=== PATIENT | female | born 1965 | race Caucasian/White ===

== ENCOUNTER 2021-05-26 11:23 | Emergency (ER) | payer OTHER ==
[2021-05-26] MEDS ORDERED: Sodium Chloride 0.9% 10 ML Syringe FLUSH PRN (11:31)
[2021-05-26] MEDS ORDERED: Sodium Chloride 0.9% 2.5 ML Syringe FLUSH PRN (11:31)
--- NOTE | 2021-05-26 11:34 | PCM.EKG ---
#1 Interpretation EKG Date: 05/26/21 Time: 11:25 Rhythm: NSR Rate (Beats/Min): 80 [place]: Normal P-Wave: Present QRS: Normal ST-T: Normal QT: Normal FL/PQ Interval: 141 EKG Interpretation Comments: no acute ischemic changes
[2021-05-26] MEDS ORDERED: Aspirin 81 MG Tab.Chew PO ONE (11:45)
[2021-05-26] MEDS ORDERED: Albuterol/Ipratropium 3.0-0.5 MG/3 ML Neb Soln NEB ONE (12:18)
[2021-05-26] MEDS ORDERED: methylPREDNISolone Sodium Succinate 125 MG/2 ML SDV IVPUSH ONE (12:18)
--- NOTE | 2021-05-26 12:18 | EDM.PDOC ---
ED HPI GENERAL MEDICAL PROBLEM - General Chief Complaint: Chest Pain Stated Complaint: CHEST PAIN Time Seen by Provider: 05/26/21 11:24 Source of Information: Reports: Patient History Limitations: Reports: No Limitations - History of Present Illness INITIAL COMMENTS - FREE TEXT/NARRATIVE: HISTORY AND PHYSICAL: History of present illness: Patient is a 56 year old female, with a history of hypertension, asthma, Raynaud, who presents emergency room today with concern of chest pain that is ongoing for the past 4 days. Patient states that the chest pain was initially intermittent and was coming and going. Patient said it has now been constant since yesterday. Patient states that it is in the center of her chest and feels like a "bruise ". Patient states that she is also noting some fluttering in her chest and states that at times her heart is racing. Patient states that she does have a history of sleep apnea and states that she has not had a CPAP machine for quite some time. Patient states since the onset of her symptoms, she has had a hard time sleeping at night because she wakes up gasping and her heart racing. Patient states that she has not taken anything for her symptoms. Patient does note that she had stopped smoking cigarettes 2 months ago but has switched over to vaporizing. Patient states that a few days ago, her family member brought over a different kind of vaporizing solution and states that she feels like this somehow triggered her symptoms. Patient states that she has also been feeling some discomfort of her throat and nose after starting this new vaporizer. Patient states that she has been using eamr-sko-[id number] nasal saline which has been helping the symptoms. Patient denies fever, chills, cough. Denies headache, neck stiff ness, change in vision, syncope, or near syncope. Denies nausea, vomiting, abdominal pain, diarrhea, constipation, or dysuria. Has not noted any blood in urine or stool. Patient has been eating and drinking appropriately. Review of systems: As per history of present illness and below otherwise all systems reviewed and negative. Past medical history: As per history of present illness and as reviewed below otherwise noncontributory. Surgical history: As per history of present illness and as reviewed below otherwise noncontributory. Social history: See social history for further information Family history: As per history of present illness and as reviewed below otherwise noncontributory. Physical exam: General: Patient is alert, oriented, and in no acute distress. Patient sitting comfortably on exam table. Vitals stable and reviewed by me. HEENT: No lip edema, tongue edema, or oropharyngeal edema. No stridor. Atraumatic, normocephalic, pupils equal and reactive bilaterally, negative for conjunctival pallor or scleral icterus, mucous membranes moist, throat clear, neck supple, nontender, trachea midline. No drooling or trismus noted. No meningeal signs. No hot potato voice noted. Lungs: Clear to auscultation, breath sounds equal bilaterally, chest nontender. Heart: S1S2, regular rate and rhythm without overt murmur Abdomen: Soft, nondistended, nontender. Negative for masses or hepatosplenomegaly. Negative for costovertebral tenderness. Pelvis: Stable nontender. Genitourinary: Deferred. Rectal: Deferred. Skin: Intact, warm, dry. No lesions or rashes noted. Extremities: Atraumatic, negative for cords or calf pain. Neurovascular unremarkable. Neuro: Awake, alert, oriented. Cranial nerves II through XII unremarkable. Cerebellum unremarkable. Motor and sensory unremarkable throughout. Exam nonfocal. Medical Decision Making: Patient is a 56-year-old female with a history of hypertension, asthma, and Raynauds presented to the emergency room today with concern of 4-day history of chest pain with associated throat/nasal discomfort. Upon arrival to the ED, patient is vitally stable and well-appearing on exam. Will obtain cardiac evaluation, provide a dose of aspirin, and reassess patient. See Dr. Cortes's dictation for specific EKG interpretation. Otherwise, normal sinus rhythm without STEMI. CBC does show mild leukocytosis with white blood cell count of 11.39, otherwise mild derangements of CBC unremarkable. D-dimer is within normal limits. CMP mild derangements are unremarkable. Troponin negative. TSH, free T3 and T4 within normal limits. Covid and influenza negative. Repeat 3-hour troponin remains negative. Chest x-ray unremarkable. Upon reevaluation of patient, she states that she does have improvement of her chest pain but does state that she does have a "stuck "feeling in the middle of her throat which does make it feel like she is having a hard time breathing. Patient states that she had a hard time explaining this during the initial HPI but states that she feels like this discomfort of her throat is what is causing her chest pain and shortness of breath. Patient states that she does feel this is related to vaporizing. I did discuss thoroughly with patient to stop vaporizing immediately. Because of this, will obtain soft tissue neck CT and angiography of chest due to sensation of airway impingement. Although patient is breathing comfortably, no drooling or trismus on exam. Lungs are clear. No lip edema, tongue edema, or oropharyngeal edema. No stridor. Soft tissue neck CT shows shoddy bilateral level 1 and level 2 lymph nodes are nonspecific but likely reactive in nature. No radiographic evidence of peripherally enhancing fluid collections. Mild to moderate scattered degenerative changes of the cervical spine. Ang CT of the chest shows no acute cardiopulmonary abnormality. No evidence of PE. On reevaluation of patient, she remains vitally stable and comfortable throughout stay in ED. I did offer admission for observation the patient, however, she declines at this time. All risks versus benefits discussed with patient and expresses understanding. I did further discuss with patient how potentially the chemicals of the vaporizer are causing some airway inflammation/sensation of fullness and discomfort. I discussed immediately stopping vaporizing as this is a new substance to her. I also discussed the other possibilities need to be further evaluated with cardiology and her primary care provider. I did discuss with patient the importance for follow-up with a primary care provider/director of regional sales. Strict return precautions thoroughly discussed with patient. Voices understanding and is agreeable to plan of care. Denies any further questions or concerns at this time. Diagnostics: EKG, CBC, CMP, chest x-ray 1 view, troponin, D-dimer, Covid/influenza, soft tissue neck CT with contrast, angiography of the chest Therapeutics: Saline lock, aspirin, DuoNeb, Solu-Medrol, Benadryl Prescription: None Impression: Atypical chest pain Dysphagia Plan: 1. You can alternate ibuprofen and Tylenol as directed for pain and discomfort. Stop vaporizing as discussed. 2. Follow-up with your primary care provider and director of regional sales as discussed. Return to the ED as needed and as discussed. Definitive disposition and diagnosis as appropriate pending reevaluation and review of above. chest area Pain Score (Numeric/FACES): 6 - Related Data Allergies Allergy/AdvReac Type Severity Reaction Status Date / Time No Known Allergies Allergy Verified 05/26/21 11:36 Home Meds: Home Meds Albuterol [Ventolin HFA] 1 inh INH ASDIRECTED PRN 07/01/16 [History] Lurasidone [Latuda] 40 mg PO DAILY 05/26/21 [History] lisinopriL [Lisinopril] 10 mg PO DAILY 05/26/21 [History] Past Medical History HEENT History: Reports: None Cardiovascular History: Reports: Hypertension Respiratory History: Reports: Asthma Gastrointestinal History: Reports: None Genitourinary History: Reports: None RESEARCH COORDINATOR History: Reports: None Musculoskeletal History: Reports: Other (See Below) Other Musculoskeletal History: Raynaud's Neurological History: Reports: None Psychiatric History: Reports: Anxiety, Bipolar, Depression, PTSD Endocrine/Metabolic History: Reports: None Insulin Pump Model and Director Life Insurance: None Hematologic History: Reports: None Immunologic History: Reports: None Oncologic (Cancer) History: Reports: None Dermatologic History: Reports: None - Infectious Disease History Infectious Disease History: Reports: None - Past Surgical History Head Surgeries/Procedures: Reports: None HEENT Surgical History: Reports: None Cardiovascular Surgical History: Reports: None Social & Family History - Family History Family Medical History: No Pertinent Family History - Caffeine Use Caffeine Use: Reports: None - Recreational Drug Use Recreational Drug Use: No ED ROS GENERAL - Review of Systems Review Of Systems: Comprehensive ROS is negative, except as noted in HPI. ED EXAM, GENERAL - Physical Exam Exam: See Below (see dictation) Course - Vital Signs Last Recorded V/S: Last Vital Signs Temp 97.2 F 05/26/21 16:23 Pulse 92 05/26/21 16:23 Resp 18 05/26/21 16:23 BP 140/85 05/26/21 16:23 Pulse Ox 97 05/26/21 16:23 - Orders/Labs/Meds Orders: Active Orders 24 hr Category Date Time Status Saline Lock Insert [OM.PC] Stat Oth 05/26/21 11:31 Ordered Labs: Laboratory Tests 05/26/21 05/26/21 05/26/21 Range/Units 11:20 11:20 11:20 WBC 11.39 H (4.0-11.0) K/uL RBC 4.65 (4.30-5.90) M/uL Hgb 14.3 (12.0-16.0) g/dL Hct 43.8 (36.0-46.0) % MCV 94.2 (80.0-98.0) fL MCH 30.8 (27.0-32.0) pg MCHC 32.6 (31.0-37.0) g/dL RDW Std Deviation 47.1 (28.0-62.0) fl RDW Coeff of Tessie 14 (11.0-15.0) % Plt Count 312 (150-400) K/uL MPV 10.00 (7.40-12.00) fL Neut % (Auto) 77.0 (48.0-80.0) % Lymph % (Auto) 18.4 (16.0-40.0) % [place] % (Auto) 4.0 (0.0-15.0) % Eos % (Auto) 0.3 (0.0-7.0) % Baso % (Auto) 0.3 (0.0-1.5) % Neut # (Auto) 8.8 H (1.4-5.7) K/uL Lymph # (Auto) 2.1 (0.6-2.4) K/uL [place] # (Auto) 0.5 (0.0-0.8) K/uL Eos # (Auto) 0.0 (0.0-0.7) K/uL Baso # (Auto) 0.0 (0.0-0.1) K/uL Nucleated RBC % 0.0 /100WBC Nucleated RBCs # 0 K/uL D-Dimer, Quantitative 0.48 (0.0-0.50) mg/L FEU Sodium 142 (136-145) mmol/L Potassium 3.5 (3.5-5.1) mmol/L Chloride 105 (98-107) mmol/L Carbon Dioxide 29.0 (21.0-32.0) mmol/L BUN 10 (7.0-18.0) mg/dL Creatinine 0.8 (0.6-1.0) mg/dL Est Cr Clr Drug Dosing 77.27 mL/min Estimated GFR (MDRD) > 60.0 ml/min Glucose 111 H (74-106) mg/dL Calcium 9.4 (8.5-10.1) mg/dL Total Bilirubin 0.4 (0.2-1.0) mg/dL AST 18 (15-37) IU/L ALT 23 (14-63) IU/L Alkaline Phosphatase 64 (46-116) U/L Troponin I < 0.050 (0.000-0.056) ng/mL Total Protein 8.4 H (6.4-8.2) g/dL Albumin 3.7 (3.4-5.0) g/dL Globulin 4.7 H (2.6-4.0) g/dL Albumin/Globulin Ratio 0.8 L (0.9-1.6) Lipase 70 L (73-393) U/L Free T4 (0.76-1.46) ng/dL Free T3 (2.18-3.98) pg/mL TSH, Ultra Sensitive (0.36-3.74) uIU/mL Influenza Type A RNA (NEGATIVE) Influenza Type B RNA (NEGATIVE) SARS-CoV-2 RNA (JOSE) (NEGATIVE) 05/26/21 05/26/21 05/26/21 Range/Units 11:20 11:58 13:15 WBC (4.0-11.0) K/uL RBC (4.30-5.90) M/uL Hgb (12.0-16.0) g/dL Hct (36.0-46.0) % MCV (80.0-98.0) fL MCH (27.0-32.0) pg MCHC (31.0-37.0) g/dL RDW Std Deviation (28.0-62.0) fl RDW Coeff of Tessie (11.0-15.0) % Plt Count (150-400) K/uL MPV (7.40-12.00) fL Neut % (Auto) (48.0-80.0) % Lymph % (Auto) (16.0-40.0) % [place] % (Auto) (0.0-15.0) % Eos % (Auto) (0.0-7.0) % Baso % (Auto) (0.0-1.5) % Neut # (Auto) (1.4-5.7) K/uL Lymph # (Auto) (0.6-2.4) K/uL [place] # (Auto) (0.0-0.8) K/uL Eos # (Auto) (0.0-0.7) K/uL Baso # (Auto) (0.0-0.1) K/uL Nucleated RBC % /100WBC Nucleated RBCs # K/uL D-Dimer, Quantitative (0.0-0.50) mg/L FEU Sodium (136-145) mmol/L Potassium (3.5-5.1) mmol/L Chloride (98-107) mmol/L Carbon Dioxide (21.0-32.0) mmol/L BUN (7.0-18.0) mg/dL Creatinine (0.6-1.0) mg/dL Est Cr Clr Drug Dosing mL/min Estimated GFR (MDRD) ml/min Glucose (74-106) mg/dL Calcium (8.5-10.1) mg/dL Total Bilirubin (0.2-1.0) mg/dL AST (15-37) IU/L ALT (14-63) IU/L Alkaline Phosphatase (46-116) U/L Troponin I < 0.050 (0.000-0.056) ng/mL Total Protein (6.4-8.2) g/dL Albumin (3.4-5.0) g/dL Globulin (2.6-4.0) g/dL Albumin/Globulin Ratio (0.9-1.6) Lipase (73-393) U/L Free T4 1.13 (0.76-1.46) ng/dL Free T3 2.64 (2.18-3.98) pg/mL TSH, Ultra Sensitive 0.53 (0.36-3.74) uIU/mL Influenza Type A RNA NEGATIVE (NEGATIVE) Influenza Type B RNA NEGATIVE (NEGATIVE) SARS-CoV-2 RNA (JOSE) NEGATIVE (NEGATIVE) Meds: Medications Discontinued Medications Generic Name Dose Route Start Last Admin Trade Name Freq PRN Reason Stop Dose Admin Albuterol/Ipratropium 3 ml 05/26/21 12:18 05/26/21 12:23 Albuterol/Ipratropium 3.0-0.5 Mg/3 Ml Neb Soln NEB 05/26/21 12:19 3 ml ONETIME ONE Administration Albuterol/Ipratropium Confirm 05/26/21 13:13 05/26/21 13:19 Albuterol/Ipratropium 3.0-0.5 Mg/3 Ml Neb Soln Administered 05/26/21 13:14 Not Given Dose 3 ml .ROUTE .STK-MED ONE Aspirin 324 mg 05/26/21 11:45 05/26/21 11:59 Aspirin 81 Mg Tab.Chew PO 05/26/21 11:46 324 mg ONETIME ONE Administration Diphenhydramine HCl 50 mg 05/26/21 13:00 05/26/21 13:23 Diphenhydramine 50 Mg/Ml Sdv IVPUSH 05/26/21 13:01 50 mg ONETIME ONE Administration Iopamidol 100 ml 05/26/21 15:17 05/26/21 15:18 Iopamidol 755 Mg/Ml 500 Ml Multipack Bottle IVPUSH 05/26/21 15:18 100 ml ONETIME ONE Administration Methylprednisolone Sodium Succinate 125 mg 05/26/21 12:18 05/26/21 12:23 Methylprednisolone Sodium Succinate 125 Mg/2 Ml Sdv IVPUSH 05/26/21 12:19 125 mg ONETIME ONE Administration Sodium Chloride 10 ml 05/26/21 11:31 Sodium Chloride 0.9% 10 Ml Syringe FLUSH ASDIRECTED PRN Keep Vein Open Sodium Chloride 2.5 ml 05/26/21 11:31 Sodium Chloride 0.9% 2.5 Ml Syringe FLUSH ASDIRECTED PRN Keep Vein Open Departure - Departure Time of Disposition: 16:12 Disposition: Home, Self-Care 01 Clinical Impression: Atypical chest pain, Dysphagia - Discharge Information Instructions: Chest Wall Pain, [id number] Referrals: PCP,None [Primary Care Provider] - Forms: ED Department Discharge Additional Instructions: The following information is given to patients seen in the emergency department who are being discharged to home. This information is to outline your options for follow-up care. We provide all patients seen in our emergency department with a follow-up referral. The need for follow-up, as well as the timing and circumstances, are variable depending upon the specifics of your emergency department visit. If you don't have a primary care physician on staff, we will provide you with a referral. We always advise you to contact your personal physician following an emergency department visit to inform them of the circumstance of the visit and for follow-up with them and/or the need for any referrals to a consulting specialist. The emergency department will also refer you to a specialist when appropriate. This referral assures that you have the opportunity for follow-up care with a specialist. All of these measure are taken in an effort to provide you with optimal care, which includes your follow-up. Under all circumstances we always encourage you to contact your private physician who remains a resource for coordinating your care. When calling for follow-up care, please make the office aware that this follow-up is from your recent emergency room visit. If for any reason you are refused follow-up, please contact the [facility] Emergency Department at and asked to speak to the emergency department charge nurse. [facility] / Cardiology [id number], [place] [address] [facility] [address] [place] [id number] 1. You can alternate ibuprofen and Tylenol as directed for pain and discomfort. Stop vaporizing as discussed. 2. Follow-up with your primary care provider and director of regional sales as discussed. Return to the ED as needed and as discussed. Sepsis Event Note (ED) - Evaluation Sepsis Screening Result: No Definite Risk - Focused Exam Vital Signs: Vital Signs Temp Pulse Resp BP Pulse Ox 05/26/21 16:23 97.2 F 92 18 140/85 97 05/26/21 14:00 90 18 142/84 H 94 L 05/26/21 11:25 97.7 F 90 18 158/90 H 97 - My Orders Last 24 Hours: My Active Orders 05/26/21 11:31 Saline Lock Insert [OM.PC] Stat - Assessment/Plan Last 24 Hours: My Active Orders 05/26/21 11:31 Saline Lock Insert [OM.PC] Stat
[2021-05-26 12:19] LABS: BLOOD UREA NITROGEN,BUN 10 mg/dL (7.0-18.0); CHLORIDE,CL 105 mmol/L (98-107); GLUCOSE RANDOM 111 mg/dL (74-106); LIPASE 70 U/L (73-393); POTASSIUM,K 3.5 mmol/L (3.5-5.1); SODIUM,NA 142 mmol/L (136-145)
--- NOTE | 2021-05-26 12:24 | CR ---
INDICATION: Chest pain and shortness of breath. TECHNIQUE: Chest 1 view. COMPARISON: None. FINDINGS: Cardiovascular and mediastinum: Heart size and vasculature are normal in caliber and appearance. Lungs and pleural spaces: Lungs are clear. No sign of infiltrate or mass. No sign of pleural effusion. No pneumothorax. Bones and soft tissues: No significant findings. IMPRESSION: No acute or significant findings. Dictated by Lambert Becker MD @ 05/26/2021 12:22:06 PM (Electronically Signed)
[2021-05-26 12:49] LABS: CORONAVIRUS COVID-19 NAA NEGATIVE (NEGATIVE); INFLUENZA A NAA NEGATIVE (NEGATIVE); INFLUENZA B NAA NEGATIVE (NEGATIVE)
[2021-05-26] MEDS ORDERED: diphenhydrAMINE 50 MG/ML SDV IVPUSH ONE (13:00)
[2021-05-26] MEDS ORDERED: Albuterol/Ipratropium 3.0-0.5 MG/3 ML Neb Soln ONE (13:13)
[2021-05-26] MEDS ORDERED: Iopamidol 755 MG/ML 500 ML Multipack Bottle IVPUSH ONE (15:17)
--- NOTE | 2021-05-26 15:22 | CR ---
INDICATION: Sensation of lump in base of throat. TECHNIQUE: AP and lateral images of the neck with soft tissue technique. COMPARISON: None FINDINGS: Epiglottis and aryepiglottic folds normal in thickness. No hypopharyngeal distention. IMPRESSION: Negative soft tissue study of the neck. Dictated by Aleksandar Sierra MD @ 05/26/2021 3:21:57 PM (Electronically Signed)
--- NOTE | 2021-05-26 15:35 | CT ---
Indication: Sensation of mass in throat. Throat pain. Technique: CT soft tissue neck with IV contrast was acquired from the skullbase to the thoracic inlet. No comparisons. Findings: Visualized posterior fossa structures are within normal limits. The thyroid, submandibular and parotid glands are within normal limits. The cervical airway is widely patent. Epiglottis appears refined. Vallecula and piriform sinuses are within normal limits. Visualized pulmonary apices are grossly unremarkable. [place] bilateral level 1 and level 2 lymph nodes are nonspecific and likely reactive in nature. The palatine tonsils are within normal limits. No suspicious fluid collections. No convincing evidence suspicious enhancing masses seen within the soft tissues in neck. [id number] scattered degenerative changes of the cervical spine. The visualized maxillary, ethmoid and sphenoid sinuses appear clear. Impression: 1. [place] bilateral level 1 and level 2 lymph nodes are nonspecific but likely reactive in nature. 2. No radiographic evidence of peripherally enhancing fluid collections. 3. [id number] scattered degenerative changes of the cervical spine. Please note that all CT scans at this facility use dose modulation, iterative reconstruction, and/or weight-based dosing when appropriate to reduce radiation dose to as low as reasonably achievable. Dictated by Alexander Romeo MD @ 05/26/2021 3:33:01 PM (Electronically Signed)
--- NOTE | 2021-05-26 16:04 | CT ---
Indication: Chest pain with palpitations, hot flashes question through mass Technique: Volumetric multidetector CT images of the chest were obtained after the administration of IV contrast. 100 cc Isovue 370 low osmolar intravenous contrast Comparison: None available. Findings: The thoracic inlet and thyroid gland are unremarkable. The thoracic aorta is nonaneurysmal. There is no central filling defect to suggest pulmonary embolism. There is no mediastinal, hilar or axillary adenopathy. The trachea and bronchi are well aerated without significant bronchiectasis. There is no focal consolidation, effusion or pneumothorax. There is no evidence of pulmonary mass or suspicious pulmonary nodule. The partially visualized upper abdominal viscera are within normal limits. There is diffuse flowing anterior osteophytosis with mild multilevel degenerative disc disease. There is no significant spondylolisthesis or displaced fracture. Impression: No acute cardiopulmonary abnormality. No evidence of pulmonary embolus. Please note that all CT scans at this facility use dose modulation, iterative reconstruction, and/or weight-based dosing when appropriate to reduce radiation dose to as low as reasonably achievable. Dictated by Raf Yepez MD @ 05/26/2021 4:03:08 PM (Electronically Signed)
[2021-05-26 16:23] VITALS: BP 140/85; PULSE 92
== END 2021-05-26 16:23 | disposition home or self-care (01) ==
LOC: MW.ED 11:23
DX: R07.89 Other chest pain (principal); R13.10 Dysphagia, unspecified; I10 Essential (primary) hypertension; J45.909 Unspecified asthma, uncomplicated; D72.829 Elevated white blood cell count, unspecified; Z79.899 Other long term (current) drug therapy; Z20.822 Contact with and (suspected) exposure to COVID-19
CPT/HCPCS: 0240U; 36415; 70360; 70491; 71045; 71275; 80053; 83690; 84439; 84443; 84481; 84484; 85025; 85379; 93005; 96374; 96375; 99285; A9270; J1200; J2930; Q9967; J7620-GY

== ENCOUNTER 2021-06-20 13:52 | Emergency (ER) | payer MEDICAID, OTHER ==
--- NOTE | 2021-06-20 14:27 | EDM.PDOC ---
ED HPI GENERAL MEDICAL PROBLEM - General Chief Complaint: ENT Problem Stated Complaint: PT FEELS "LIKE HER THROAT IS CLOSING " Time Seen by Provider: 06/20/21 14:02 Source of Information: Reports: Patient History Limitations: Reports: No Limitations - History of Present Illness INITIAL COMMENTS - FREE TEXT/NARRATIVE: HISTORY AND PHYSICAL: History of present illness: Patient is a 56-year-old female who presents to the emergency room with concerns of foreign body in her esophagus. She states since Thanksgiving she has had the sensation of something in her throat. She was seen by her primary care provider at [place] [facility] who felt this could be due to sinus drainage and placed her on a course of amoxicillin. She was referred to ENT in [facility] although states it is "too far away" and wanted to be evaluated today as she has had increased anxiety. Patient grabs at her throat and states "I can feel it in there". Patient denies any fever, chills, headache, change in vision, syncope or near syncope. Denies any chest pain, back pain, shortness of breath or cough. No difficulty with speech or swallowing. Denies any GI or symptoms. Patient has been eating and drinking appropriately. No recent travel or sick contacts. Review of systems: As per history of present illness and below otherwise all systems reviewed and negative. Past medical history: As per history of present illness and as reviewed below otherwise noncontributory. Surgical history: As per history of present illness and as reviewed below otherwise noncontributory. Social history: See social history for further information Family history: As per history of present illness and as reviewed below otherwise noncontributory. Physical exam: General: Well developed and well nourished 56-year-old female. Alert and orientated x 3. Nontoxic in appearance and in no acute distress. Vital signs are stable and have been reviewed by me. Nursing notes were reviewed. HEENT: Atraumatic, normocephalic, pupils equal and reactive bilaterally, negative for conjunctival pallor or scleral icterus, mucous membranes moist, TMs normal bilaterally, throat clear, neck supple, nontender, trachea midline. No drooling or trismus noted. No meningeal signs. No hot potato voice noted. Lungs: Clear to auscultation bilaterally. No wheezes, rales, or rhonchi. Chest nontender. Normal work of breathing, no accessory muscles used. Heart: S1S2, regular rate and rhythm without overt murmur, gallops, or rubs. No JVD. No peripheral edema Abdomen: Soft, nondistended, nontender. Normoactive bowel sounds. Negative for masses or costovertebral tenderness. Skin: Intact, warm, dry. No lesions or rashes noted. Hematologic: No petechiae or purpra. Mucosa appropriate color and normal nail bed color and refill. Extremities: Atraumatic, moves all extremities per self without difficulty or deficits, negative for cords or calf pain. Neurovascular unremarkable. Neuro: Awake, alert, oriented. Cranial nerves II through XII unremarkable. Cerebellum unremarkable. Motor and sensory unremarkable throughout. Exam nonfocal. Psychiatric: Mood and affect are appropriate. Normal thought process. Answering questions appropriately. Please note that the patient was seen and evaluated during the 2019 SARS-CoV-2 novel coronavirus pandemic period. Community viral transmission is ongoing at time of this encounter and the emergency department is operating under pandemic response procedures. Medical Decision Making: Patient's physical exam is unremarkable. She is nontoxic-appearing, breathing easy has clear speech and eating and drinking without any difficulty. We did discuss that she likely needs an EGD at some point if this sensation continues and or follow-up with the ENT specialist as already has been recommended. We did discuss doing a CT of the soft tissue neck at this time as she is unhappy with out further diagnostics. Overall, similar exam to comparison without evidence of acute abnormality. Incidental note is made of moderate prominence of a ventral osteophyte arising from the C3-C4 level as well as additional osteophytosis at the C5-C6 and C6-C7 levels with minimal effacement of the oropharynx and hypopharynx. Occasionally, these can be a cause of dysphagia and globus sensation. Correlate with history of clinical symptoms. Otherwise, stable shotty lymph nodes without evidence of acute abnormality. I have talked with the patient about today's findings, in addition to providing specific details for plan of care. Reassessment at the time of disposition demonstrates that the patient is in no acute distress. The patient is stable for discharge, counseling was provided and we discussed in great detail signs and symptoms that would prompt them to return to the Emergency Department. Me dication, follow up and supportive care measures were reviewed and discussed. Voices understanding and is agreeable to plan of care. Denies any further questions or concerns at this time. Diagnostics: CBC, CMP, CT soft tissue neck Therapeutics: None Prescription: None Impression: Sensation of foreign body in throat Plan: 1. You were evaluated today on an emergent basis. Your CT shows no concern for anything in the throat. I would have you follow up with ENT or general surgery of an endoscopy to further evaluate. 2. You can alternate Tylenol and ibuprofen as needed for pain and fever m anagement. 3. We encourage you to follow up with your primary care provider and/or recommended specialist in the next few days for re-evaluation and further care/management. 4. If your symptoms should worsen, new symptoms develop or any of the signs and symptoms we discussed should arise please return to the emergency room or call 911 (if needed). Definitive disposition and diagnosis as appropriate pending reevaluation and review of above. Throat Pain Score (Numeric/FACES): 5 - Related Data Allergies Allergy/AdvReac Type Severity Reaction Status Date / Time No Known Allergies Allergy Verified 06/20/21 14:06 Home Meds: Home Meds Albuterol [Ventolin HFA] 1 inh INH ASDIRECTED PRN 07/01/16 [History] lisinopriL [Lisinopril] 10 mg PO DAILY 05/26/21 [History] Loratadine 1 dose PO DAILY 06/20/21 [History] atorvaSTATin [Lipitor] 1 dose PO DAILY 06/20/21 [History] Past Medical History HEENT History: Reports: None Cardiovascular History: Reports: Hypertension Respiratory History: Reports: Asthma Gastrointestinal History: Reports: None Genitourinary History: Reports: None HYPERTRICHOLOGIST History: Reports: None Musculoskeletal History: Reports: Other (See Below) Other Musculoskeletal History: Raynaud's Neurological History: Reports: None Psychiatric History: Reports: Anxiety, Bipolar, Depression, PTSD Endocrine/Metabolic History: Reports: None Insulin Pump Model and Ruby On Rails Developer: None Hematologic History: Reports: None Immunologic History: Reports: None Oncologic (Cancer) History: Reports: None Dermatologic History: Reports: None - Infectious Disease History Infectious Disease History: Reports: None - Past Surgical History Head Surgeries/Procedures: Reports: None HEENT Surgical History: Reports: None Cardiovascular Surgical History: Reports: None Social & Family History - Family History Family Medical History: No Pertinent Family History - Tobacco Use Tobacco Use Status *Q: Former Tobacco User Used Tobacco, but Quit: Yes Month/Year Tobacco Last Used: 3 months - Caffeine Use Caffeine Use: Reports: None - Recreational Drug Use Recreational Drug Use: No ED ROS ENT - Review of Systems Review Of Systems: Comprehensive ROS is negative, except as noted in HPI. ED EXAM, ENT - Physical Exam Exam: See Below (See dictation) Course - Vital Signs Last Recorded V/S: Last Vital Signs Temp 97.2 F 06/20/21 14:07 Pulse 101 H 06/20/21 14:07 Resp 17 06/20/21 14:07 BP 163/89 H 06/20/21 14:07 Pulse Ox 96 06/20/21 14:07 - Orders/Labs/Meds Labs: Laboratory Tests 06/20/21 06/20/21 Range/Units 14:51 14:51 WBC 10.10 (4.0-11.0) K/uL RBC 4.31 (4.30-5.90) M/uL Hgb 13.2 (12.0-16.0) g/dL Hct 41.3 (36.0-46.0) % MCV 95.8 (80.0-98.0) fL MCH 30.6 (27.0-32.0) pg MCHC 32.0 (31.0-37.0) g/dL RDW Std Deviation 47.3 (28.0-62.0) fl RDW Coeff of Tessie 14 (11.0-15.0) % Plt Count 314 (150-400) K/uL MPV 9.90 (7.40-12.00) fL Neut % (Auto) 77.1 (48.0-80.0) % Lymph % (Auto) 17.5 (16.0-40.0) % Price % (Auto) 4.8 (0.0-15.0) % Eos % (Auto) 0.4 (0.0-7.0) % Baso % (Auto) 0.2 (0.0-1.5) % Neut # (Auto) 7.8 H (1.4-5.7) K/uL Lymph # (Auto) 1.8 (0.6-2.4) K/uL Price # (Auto) 0.5 (0.0-0.8) K/uL Eos # (Auto) 0.0 (0.0-0.7) K/uL Baso # (Auto) 0.0 (0.0-0.1) K/uL Nucleated RBC % 0.0 /100WBC Nucleated RBCs # 0 K/uL Sodium 144 (136-145) mmol/L Potassium 3.7 (3.5-5.1) mmol/L Chloride 105 (98-107) mmol/L Carbon Dioxide 28.9 (21.0-32.0) mmol/L BUN 9 (7.0-18.0) mg/dL Creatinine 1.1 H (0.6-1.0) mg/dL Est Cr Clr Drug Dosing 47.80 mL/min Estimated GFR (MDRD) 51.6 ml/min Glucose 149 H (74-106) mg/dL Calcium 9.3 (8.5-10.1) mg/dL Total Bilirubin 0.3 (0.2-1.0) mg/dL AST 13 L (15-37) IU/L ALT 24 (14-63) IU/L Alkaline Phosphatase 64 (46-116) U/L Total Protein 7.6 (6.4-8.2) g/dL Albumin 3.4 (3.4-5.0) g/dL Globulin 4.2 H (2.6-4.0) g/dL Albumin/Globulin Ratio 0.8 L (0.9-1.6) Meds: Medications Discontinued Medications Generic Name Dose Route Start Last Admin Trade Name Freq PRN Reason Stop Dose Admin Iopamidol 75 ml 06/20/21 16:01 06/20/21 16:02 Iopamidol 755 Mg/Ml 500 Ml Multipack Bottle IVPUSH 06/20/21 16:02 75 ml ONETIME STA Administration Departure - Departure Time of Disposition: 16:57 Disposition: Home, Self-Care 01 Clinical Impression: Sensation of foreign body in throat - Discharge Information Instructions: Swallowed Foreign Body, Adult, [id number] Referrals: Karen Pimentel DO [Primary Care Provider] - Forms: ED Department Discharge Additional Instructions: The following information is given to patients seen in the emergency department who are being discharged to home. This information is to outline your options for follow-up care. We provide all patients seen in our emergency department with a follow-up referral. The need for follow-up, as well as the timing and circumstances, are variable depending upon the specifics of your emergency department visit. If you don't have a primary care physician on staff, we will provide you with a referral. We always advise you to contact your personal physician following an emergency department visit to inform them of the circumstance of the visit and for follow-up with them and/or the need for any referrals to a consulting specialist. The emergency department will also refer you to a specialist when appropriate. This referral assures that you have the opportunity for follow-up care with a specialist. All of these measure are taken in an effort to provide you with optimal care, which includes your follow-up. Under all circumstances we always encourage you to contact your private physician who remains a resource for coordinating your care. When calling for follow-up care, please make the office aware that this follow-up is from your recent emergency room visit. If for any reason you are refused follow-up, please contact the Emergency Department at and asked to speak to the emergency department charge nurse. Primary Care [address] [place] [id number] [address] [address] Thank you for choosing the [facility] emergency department in [place] for your medical needs today. It was a pleasure caring for you. Today you were seen in the emergency department for throat FB. 1. You were evaluated today on an emergent basis. Your CT shows no concern for anything in the throat. I would have you follow up with ENT or general surgery of an endoscopy to further evaluate. 2. You can alternate Tylenol and ibuprofen as needed for pain and fever management. 3. We encourage you to follow up with your primary care provider and/or recommended specialist in the next few days for re-evaluation and further care/management. 4. If your symptoms should worsen, new symptoms develop or any of the signs and symptoms we discussed should arise please return to the emergency room or call 911 (if needed). Sepsis Event Note (ED) - Focused Exam Vital Signs: Vital Signs Temp Pulse Resp BP Pulse Ox 06/20/21 14:07 97.2 F 101 H 17 163/89 H 96
[2021-06-20 15:26] LABS: CARBON DIOXIDE,CO2 28.9 mmol/L (21.0-32.0); POTASSIUM,K 3.7 mmol/L (3.5-5.1)
[2021-06-20] MEDS ORDERED: Iopamidol 755 MG/ML 500 ML Multipack Bottle IVPUSH STA (16:01)
--- NOTE | 2021-06-20 16:53 | CT ---
Indication: Sensation of growth, foreign body in esophagus feels like throat is collapsing Technique: Volumetric multidetector CT images of the cervical soft tissues were obtained after the administration of low osmolar intravenous contrast. 75 cc Isovue 370 low osmolar intravenous contrast Comparison: CT soft tissue neck May 26, 2021 Findings: The partially visualized brain parenchyma is normal in attenuation without evidence of abnormal enhancement. The orbits and their contents are within normal limits. The paranasal sinuses are clear. The mastoid air cells are clear. The nasopharynx is unremarkable. The fossae of Rosenmuller are clear. There is again seen mild effacement of the posterior oropharynx secondary to a large cervical osteophyte. Otherwise the oropharynx is grossly unremarkable. The hypopharynx is clear. There is mild prominence of the right greater than left parotid glands with a minimal amount of extra glandular tissue on the right inferior aspect of the parotid. Otherwise, the deep spaces of the neck are grossly preserved. The vocal folds are nonthickened with symmetrical appearance. The thyroid gland is normal in attenuation. Again seen are shoddy cervical lymph nodes similar to previous exam without evidence of pathologic adenopathy. The jugular veins are patent. The carotid arteries demonstrate no significant atherosclerotic narrowing. The lung apices are clear. The cervical vertebral body heights are similar to previous exam with straightening of the normal cervical lordosis as well as mild ossification of the anterior and posterior longitudinal ligaments. There is moderate facet arthrosis. Impression: Overall, similar exam to comparison without evidence of acute abnormality. Incidental note is made of moderate prominence of a ventral osteophyte arising from the C3-C4 level as well as additional osteophytosis at the C5-C6 and C6-C7 levels with minimal effacement of the oropharynx and hypopharynx. Occasionally, these can be a cause of dysphagia and globus sensation. Correlate with history of clinical symptoms. Otherwise, stable shotty lymph nodes without evidence of acute abnormality. Please note that all CT scans at this facility use dose modulation, iterative reconstruction, and/or weight-based dosing when appropriate to reduce radiation dose to as low as reasonably achievable. Dictated by Raf Yepez MD @ 06/20/2021 4:52:55 PM (Electronically Signed)
[2021-06-20 17:05] VITALS: BP 155/92; PULSE 86
== END 2021-06-20 17:06 | disposition home or self-care (01) ==
LOC: MW.ED 13:52
DX: R09.89 Other specified symptoms and signs involving the circulatory and respiratory systems (principal); I10 Essential (primary) hypertension; J45.909 Unspecified asthma, uncomplicated; Z79.899 Other long term (current) drug therapy; Z87.891 Personal history of nicotine dependence
CPT/HCPCS: 36415; 70491; 80053; 85025; 99284; Q9967

== ENCOUNTER 2021-12-08 21:08 | Emergency (ER) | payer MEDICAID ==
[2021-12-08 22:12] VITALS: BP 130/73; PULSE 100
[2021-12-08] MEDS ORDERED: Octyl 2-Cyanoacrylate 1 APPLIC TUBE ONE (22:28)
[2021-12-08] MEDS ORDERED: Octyl 2-Cyanoacrylate 1 APPLIC TUBE TOP ONE (22:28)
== END 2021-12-08 22:40 | disposition home or self-care (01) ==
LOC: MW.ED 21:08
DX: S51.811A Laceration without foreign body of right forearm, initial encounter (principal); S51.812A Laceration without foreign body of left forearm, initial encounter; F41.9 Anxiety disorder, unspecified; I10 Essential (primary) hypertension; Z79.899 Other long term (current) drug therapy; X99.1XXA Assault by knife, initial encounter
CPT/HCPCS: 99283; A9270

== ENCOUNTER 2024-01-20 14:10 | Inpatient (IN) | payer MEDICAID ==
[2024-01-20 16:04] LABS: BASOPHILS ABSOLUTE AUTO 0.05 K/uL (0.00-0.20); BASOPHILS PERCENT AUTO 0.6 % (0.0-1.0); EOSINOPHILS ABSOLUTE AUTO 0.07 K/uL (0.00-0.45); EOSINOPHILS PERCENT AUTO 0.9 % (0.0-6.0); HEMATOCRIT 42.4 % (37.0-47.0); IMMATURE GRAN ABSOLUTE AUTO 0.04 K/uL (0.00-0.05); IMMATURE GRAN PERCENT AUTO 0.5 % (0.0-0.4); LYMPHOCYTES ABSOLUTE AUTO 1.42 K/uL (1.00-4.80); LYMPHOCYTES PERCENT AUTO 18.4 % (24.0-44.0); MEAN CORPUSCULAR HEMOGLOBIN 28.8 pg (28.0-32.0); MEAN CORPUSCULAR HGB CONC 30.7 g/dL (32.0-36.0); MONOCYTES ABSOLUTE AUTO 0.65 K/uL (0.00-0.80); MONOCYTES PERCENT AUTO 8.4 % (0.0-8.0); NEUTROPHILS PERCENT AUTO 71.2 % (41.0-71.0); PLATELET COUNT,PLT 326 K/uL (150-400); RED BLOOD CELL COUNT 4.51 M/uL (4.10-5.30); WHITE BLOOD CELL COUNT,WBC 7.73 K/uL (3.9-11.3)
[2024-01-20 16:26] LABS: A/G RATIO 0.7 (0.9-1.6); ALBUMIN 3.1 g/dL (3.4-5.0); BILIRUBIN TOTAL 0.9 mg/dL (0.2-1.0); CALCIUM 8.6 mg/dL (8.5-10.1); CARBON DIOXIDE,CO2 25.5 mmol/L (21.0-32.0); EST CRCL DRUG DOSING (CG) 44.05 mL/min; POTASSIUM,K 3.8 mmol/L (3.5-5.1); PROTEIN TOTAL,TP 7.4 g/dL (6.4-8.2)
[2024-01-20 16:29] LABS: LACTIC ACID 1.7 mmol/L (0.4-2.0)
[2024-01-20 16:30] LABS: APPEARANCE,URINE CLEAR; BILIRUBIN,URINE NEGATIVE (NEGATIVE); COLOR,URINE YELLOW; GLUCOSE,URINE NEGATIVE (NEGATIVE); KETONES,URINE NEGATIVE (NEGATIVE); LEUKOCYTE ESTERASE,URINE NEGATIVE (NEGATIVE); NITRITE,URINE NEGATIVE (NEGATIVE); OCCULT BLOOD,URINE NEGATIVE (NEGATIVE); PROTEIN,URINE TRACE mg/dL (NEGATIVE); UROBILINOGEN,URINE >=8.0 EU/dL (<2.0)
[2024-01-20 16:49] LABS: TSH ULTRASENSITIVE 1.98 uIU/mL (0.36-3.74)
[2024-01-20] MEDS: Sodium Chloride 0.9% 10 ML Syringe FLUSH PRN (16:59)
[2024-01-20] MEDS: Furosemide 40 MG/4 ML VIAL IVPUSH ONE (16:59)
[2024-01-20] MEDS: Sodium Chloride 0.9% 2.5 ML Syringe FLUSH PRN (17:00)
[2024-01-20 17:01] LABS: BACTERIA,URINE 2+ (NEGATIVE); EPITHELIAL CELLS,URINE MODERATE (NONE-FEW); MUCUS,URINE LIGHT (NONE-MOD); WBC,URINE 0-2 (0-5/HPF)
[2024-01-20] MEDS: Ketorolac 30 MG/ML SDV IVPUSH ONE (17:28)
[2024-01-20] MEDS: Iopamidol 755 MG/ML 500 ML Multipack Bottle IVPUSH STA (18:00)
[2024-01-20] MEDS ORDERED: Sennosides/Docusate Sodium 50-8.6 MG Tab PO PRN (18:19)
[2024-01-20] MEDS ORDERED: Ondansetron 4 MG Tab.DIS PO PRN (18:19)
[2024-01-20] MEDS ORDERED: Polyethylene Glycol 3350 Powder 17 GM Packet PO PRN (18:19)
[2024-01-20] MEDS: Enoxaparin 40 MG/0.4 ML Syringe SUBCUT SCH (18:44)
[2024-01-20] MEDS: Furosemide 40 MG/4 ML VIAL IVPUSH SCH (20:20)
[2024-01-21] MEDS: Albuterol/Ipratropium 3.0-0.5 MG/3 ML Neb Soln NEB SCH (00:01)
[2024-01-21] MEDS: Acetaminophen/HYDROcodone 325-5 MG Tab PO PRN (02:00)
[2024-01-21] MEDS: Benzonatate 100 MG Cap PO PRN (02:18)
[2024-01-21 03:07] LABS: CORONAVIRUS COVID-19 NAA NEGATIVE (NEGATIVE); INFLUENZA A NAA NEGATIVE (NEGATIVE); INFLUENZA B NAA NEGATIVE (NEGATIVE); RESPIRATORY SYNCYTIAL VIR NAA NEGATIVE (NEGATIVE)
[2024-01-21 05:56] LABS: BASOPHILS ABSOLUTE AUTO 0.08 K/uL (0.00-0.20); BASOPHILS PERCENT AUTO 1.1 % (0.0-1.0); EOSINOPHILS ABSOLUTE AUTO 0.08 K/uL (0.00-0.45); EOSINOPHILS PERCENT AUTO 1.1 % (0.0-6.0); HEMATOCRIT 38.6 % (37.0-47.0); IMMATURE GRAN ABSOLUTE AUTO 0.02 K/uL (0.00-0.05); IMMATURE GRAN PERCENT AUTO 0.3 % (0.0-0.4); LYMPHOCYTES ABSOLUTE AUTO 1.51 K/uL (1.00-4.80); LYMPHOCYTES PERCENT AUTO 21.4 % (24.0-44.0); MEAN CORPUSCULAR HEMOGLOBIN 28.8 pg (28.0-32.0); MEAN CORPUSCULAR HGB CONC 31.1 g/dL (32.0-36.0); MEAN CORPUSCULAR VOLUME 92.6 fL (83.0-99.0); MEAN PLATELET VOLUME 8.8 fL (9.4-12.3); MONOCYTES PERCENT AUTO 9.9 % (0.0-8.0); NEUTROPHILS ABSOLUTE AUTO 4.66 K/uL (1.80-7.70); NEUTROPHILS PERCENT AUTO 66.2 % (41.0-71.0); PLATELET COUNT,PLT 268 K/uL (150-400); RED BLOOD CELL COUNT 4.17 M/uL (4.10-5.30); WHITE BLOOD CELL COUNT,WBC 7.05 K/uL (3.9-11.3)
[2024-01-21 06:25] LABS: ALBUMIN 2.6 g/dL (3.4-5.0); CALCIUM 8.4 mg/dL (8.5-10.1); CARBON DIOXIDE,CO2 26.2 mmol/L (21.0-32.0); EST CRCL DRUG DOSING (CG) 50.73 mL/min; POTASSIUM,K 3.6 mmol/L (3.5-5.1); PROTEIN TOTAL,TP 6.6 g/dL (6.4-8.2)
[2024-01-21 06:28] LABS: A/G RATIO 0.7 (0.9-1.6)
[2024-01-21] MEDS: Lisinopril 10 MG Tab PO SCH (09:45)
[2024-01-21] MEDS: Fluticasone NASAL Spray 16 GM Bottle NASBOTH SCH (12:38)
[2024-01-21] MEDS: Codeine/guaiFENesin 10-100 MG/5 ML Syrup 5 ML Cup PO PRN (20:24)
[2024-01-22 05:52] LABS: HEMATOCRIT 38.4 % (37.0-47.0); MEAN CORPUSCULAR HEMOGLOBIN 29.1 pg (28.0-32.0); MEAN CORPUSCULAR HGB CONC 31.3 g/dL (32.0-36.0); MEAN CORPUSCULAR VOLUME 93.2 fL (83.0-99.0); MEAN PLATELET VOLUME 8.9 fL (9.4-12.3); PLATELET COUNT,PLT 264 K/uL (150-400); RED BLOOD CELL COUNT 4.12 M/uL (4.10-5.30); WHITE BLOOD CELL COUNT,WBC 6.91 K/uL (3.9-11.3)
[2024-01-22 06:15] LABS: A/G RATIO 0.6 (0.9-1.6); ALBUMIN 2.5 g/dL (3.4-5.0); BILIRUBIN TOTAL 0.8 mg/dL (0.2-1.0); CALCIUM 8.4 mg/dL (8.5-10.1); CARBON DIOXIDE,CO2 28.8 mmol/L (21.0-32.0); EST CRCL DRUG DOSING (CG) 50.73 mL/min; POTASSIUM,K 3.6 mmol/L (3.5-5.1); PROTEIN TOTAL,TP 6.4 g/dL (6.4-8.2)
[2024-01-22 06:21] LABS: BASOPHILS ABSOLUTE MAN 0.14 K/uL (0.00-0.20); BASOPHILS PERCENT MAN 2 % (0-1); EOSINOPHILS ABSOLUTE MAN 0.14 K/uL (0.00-0.45); EOSINOPHILS PERCENT MAN 2 % (0-6); LYMPHOCYTES PERCENT MAN 29 % (24-44); MONOCYTES ABSOLUTE MAN 0.55 K/uL (0.00-0.80); MONOCYTES PERCENT MAN 8 % (0-8); SEG NEUTROPHILS ABSOLUTE MAN 4.08 K/uL (1.80-7.70); SEG NEUTROPHILS PERCENT MAN 59 % (41-71)
[2024-01-22] MEDS: Enoxaparin 40 MG/0.4 ML Syringe SUBCUT SCH (08:20)
[2024-01-22] MEDS: Acetaminophen 325 MG Tab PO PRN (20:55)
[2024-01-23 05:58] LABS: BASOPHILS ABSOLUTE AUTO 0.06 K/uL (0.00-0.20); BASOPHILS PERCENT AUTO 0.9 % (0.0-1.0); EOSINOPHILS ABSOLUTE AUTO 0.12 K/uL (0.00-0.45); EOSINOPHILS PERCENT AUTO 1.7 % (0.0-6.0); HEMATOCRIT 37.9 % (37.0-47.0); IMMATURE GRAN ABSOLUTE AUTO 0.02 K/uL (0.00-0.05); IMMATURE GRAN PERCENT AUTO 0.3 % (0.0-0.4); LYMPHOCYTES ABSOLUTE AUTO 1.29 K/uL (1.00-4.80); LYMPHOCYTES PERCENT AUTO 18.7 % (24.0-44.0); MEAN CORPUSCULAR HEMOGLOBIN 29.3 pg (28.0-32.0); MEAN CORPUSCULAR HGB CONC 31.7 g/dL (32.0-36.0); MEAN CORPUSCULAR VOLUME 92.4 fL (83.0-99.0); MEAN PLATELET VOLUME 9.1 fL (9.4-12.3); MONOCYTES ABSOLUTE AUTO 0.72 K/uL (0.00-0.80); MONOCYTES PERCENT AUTO 10.4 % (0.0-8.0); NEUTROPHILS ABSOLUTE AUTO 4.69 K/uL (1.80-7.70); PLATELET COUNT,PLT 257 K/uL (150-400)
[2024-01-23 06:25] LABS: A/G RATIO 0.6 (0.9-1.6); ALBUMIN 2.5 g/dL (3.4-5.0); BILIRUBIN TOTAL 0.6 mg/dL (0.2-1.0); CALCIUM 8.3 mg/dL (8.5-10.1); CARBON DIOXIDE,CO2 29.5 mmol/L (21.0-32.0); CREATININE 1.1 mg/dL (0.6-1.0); EST CRCL DRUG DOSING (CG) 46.11 mL/min; POTASSIUM,K 3.6 mmol/L (3.5-5.1); PROTEIN TOTAL,TP 6.5 g/dL (6.4-8.2)
[2024-01-24 07:36] LABS: BASOPHILS ABSOLUTE AUTO 0.07 K/uL (0.00-0.20); BASOPHILS PERCENT AUTO 0.9 % (0.0-1.0); EOSINOPHILS ABSOLUTE AUTO 0.13 K/uL (0.00-0.45); EOSINOPHILS PERCENT AUTO 1.7 % (0.0-6.0); HEMATOCRIT 38.9 % (37.0-47.0); HEMOGLOBIN 12.2 g/dL (12.0-16.0); IMMATURE GRAN ABSOLUTE AUTO 0.01 K/uL (0.00-0.05); IMMATURE GRAN PERCENT AUTO 0.1 % (0.0-0.4); LYMPHOCYTES ABSOLUTE AUTO 2.07 K/uL (1.00-4.80); LYMPHOCYTES PERCENT AUTO 26.8 % (24.0-44.0); MEAN CORPUSCULAR HEMOGLOBIN 29.1 pg (28.0-32.0); MEAN CORPUSCULAR HGB CONC 31.4 g/dL (32.0-36.0); MEAN CORPUSCULAR VOLUME 92.8 fL (83.0-99.0); MONOCYTES ABSOLUTE AUTO 0.92 K/uL (0.00-0.80); MONOCYTES PERCENT AUTO 11.9 % (0.0-8.0); NEUTROPHILS ABSOLUTE AUTO 4.51 K/uL (1.80-7.70); NEUTROPHILS PERCENT AUTO 58.6 % (41.0-71.0); PLATELET COUNT,PLT 273 K/uL (150-400); RED BLOOD CELL COUNT 4.19 M/uL (4.10-5.30); WHITE BLOOD CELL COUNT,WBC 7.71 K/uL (3.9-11.3)
[2024-01-24 08:15] LABS: A/G RATIO 0.7 (0.9-1.6); ALBUMIN 2.7 g/dL (3.4-5.0); BILIRUBIN TOTAL 0.7 mg/dL (0.2-1.0); CALCIUM 8.7 mg/dL (8.5-10.1); CARBON DIOXIDE,CO2 32.3 mmol/L (21.0-32.0); CREATININE 0.9 mg/dL (0.6-1.0); EST CRCL DRUG DOSING (CG) 56.36 mL/min; POTASSIUM,K 3.6 mmol/L (3.5-5.1); PROTEIN TOTAL,TP 6.7 g/dL (6.4-8.2)
[2024-01-24 13:16] VITALS: BP 114/82; PULSE 98
== END 2024-01-24 13:05 | disposition home health service (06) | DRG 293 ==
LOC: MW.ED 14:10 → MW.MS 18:02
PROVIDERS: ADMIT Internal Medicine; ATTEND Internal Medicine
DX: I11.0 Hypertensive heart disease with heart failure (principal); R60.1 Generalized edema; J45.909 Unspecified asthma, uncomplicated; G43.909 Migraine, unspecified, not intractable, without status migrainosus; G25.81 Restless legs syndrome; I50.9 Heart failure, unspecified; E11.9 Type 2 diabetes mellitus without complications; F41.9 Anxiety disorder, unspecified; F31.9 Bipolar disorder, unspecified; F43.10 Post-traumatic stress disorder, unspecified; G47.33 Obstructive sleep apnea (adult) (pediatric); F17.210 Nicotine dependence, cigarettes, uncomplicated; I07.1 Rheumatic tricuspid insufficiency; Z79.51 Long term (current) use of inhaled steroids; Z79.899 Other long term (current) drug therapy
CPT/HCPCS: 0241U; 36415; 71045; 71045-26; 71275; 71275-26; 80053; 81001; 82550; 83605; 83880; 84443; 85025; 87040; 93306; 93970; 93970-26; 94640; 96374; 97162-GP; 99222; 99231; 99232; 99239; 99285; 99285-25; A9270-GY; J1650; J1885; J1940; J3490; J7620-GY; Q9967